=== PATIENT | male | born 1955 | race Caucasian/White ===

== ENCOUNTER 2020-11-05 11:27 | Emergency (ER) | payer MEDICARE, OTHER ==
[~2020-11-05 11:27] MED LIST: CYMBALTA 30MG C30 MG PO; NEURONTIN300 M1 PO; NEURONTIN300 MG PO; NORCO 5-325 TA1 EAC1 PO; NORCO 5-325 TA1 EACH PO; NORCO 5/3251 EACH PO; VOLTAREN100 GM TOP
[2020-11-05 12:02] LABS: BASOPHIL 0.8 % (0-2); HCT 50.7 % (42.0-52.0); HGB 17.9 g/dl (13.2-18.0); LYMPHOCYTE 19.4 % (15-48); MCH 32.8 pg (25.0-31.0); MCHC 35.3 g/dL (32.0-36.0); MONOCYTE 5.7 % (0-12); MPV 9.8 fL (6.0-9.5); NEUTROPHIL 71.8 % (41-80); NRBC 0; PLT 177 K/uL (150-400); RBC 5.45 M/uL (4.70-6.00); RDW 13.5 % (11.5-14.0); WBC 7.6 K/uL (4.0-10.5)
[2020-11-05 12:19] LABS: ALBUMIN 4.2 g/dL (3.4-5.0); BILIRUBIN - TOTAL 1.2 mg/dL (0.2-1.0); BUN/CREAT RATIO (CALC) 19.8 RATIO; CREATININE 1.21 mg/dL (0.67-1.17); GLOBULIN (CALCULATION) 3.9 g/dL; POTASSIUM 4.3 mmol/L (3.5-5.1); TOTAL PROTEIN 8.1 g/dL (6.4-8.2)
[2020-11-05] MEDS ORDERED: ONDANSETRON ODT4 MG PO (14:04)
[2020-11-05 14:31] LABS: BILIRUBIN NEGATIVE (NEGATIVE); BLOOD TRACE-INTACT Ery/uL (NEGATIVE); CLARITY CLEAR (CLEAR); COLOR YELLOW (YELLOW); GLUCOSE (U) NORMAL (NORMAL); LEUKOCYTES NEGATIVE Leu/uL (NEGATIVE); NITRITE NEGATIVE (NEGATIVE); PROTEIN 1+ mg/dL (NEGATIVE); SPECIFIC GRAVITY 1.015 (1.001-1.030); UROBILINOGEN 0.2 mg/dL (0.2-1.0)
[2020-11-05 14:36] LABS: URINARY RBC RARE; URINARY WBC RARE
[2020-11-05 14:37] LABS: SQUAMOUS EPITHELIAL CELLS RARE
[2020-11-14] MEDS ORDERED: NEURONTIN300 MG PO (16:54)
[2020-12-04] MEDS ORDERED: NORCO 5/3251 EACH PO (11:50)
[2021-02-11] MEDS ORDERED: NORCO 5/3251 EACH PO (18:17)
[2021-04-16] MEDS ORDERED: ALLOPURINOL300 MG PO (14:44)
[2021-04-16] MEDS ORDERED: GABAPENTIN300 MG PO (14:44)
[2021-04-16] MEDS ORDERED: NORCO 5/3251 EACH PO (17:56)
== END 2020-11-05 15:20 | disposition home or self-care (01) ==
LOC: FER 11:27
PROVIDERS: Emergency Medicine
DX: K21.9 Gastro-esophageal reflux disease without esophagitis (principal); R10.11 Right upper quadrant pain; R11.2 Nausea with vomiting, unspecified; I50.9 Heart failure, unspecified; I48.91 Unspecified atrial fibrillation; J44.9 Chronic obstructive pulmonary disease, unspecified; Z90.49 Acquired absence of other specified parts of digestive tract
CPT/HCPCS: 36415; 80053; 81001; 83690; 84484; 85025; 93005; J2405; J7040; Q9967